=== PATIENT | male | born 1950 | race Caucasian/White ===

== ENCOUNTER 2016-09-12 16:52 | Emergency (ER) | payer MEDICARE | END 2016-09-12 18:55 | disposition left against medical advice (07) | LOC: DL.ED 16:52 | DX: Z53.21 Procedure and treatment not carried out due to patient leaving prior to being seen by health care provider (principal) ==

== ENCOUNTER 2016-09-13 14:51 | Emergency (ER) | payer MEDICARE ==
--- NOTE | 2016-09-13 14:56 | EDM.PDOC ---
ED HPI GENERAL MEDICAL PROBLEM - General Chief Complaint: General Stated Complaint: [id number] NEEDS MEDS Time Seen by Provider: 09/13/16 14:55 Source of Information: Reports: Patient, Old Records, RN, RN Notes Reviewed History Limitations: Reports: No Limitations - History of Present Illness INITIAL COMMENTS - FREE TEXT/NARRATIVE: Patient moved to [place] from the [facility], has appointment to schedule care with Dr. Mcclure on September 21 but has run out of his medications. Patient has a history of non-Hodgkin lymphoma, ulcerative colitis, hyperlipidemia, COPD , hypertension, GERD, depression, insomnia, CVA and chronic pain. Bilateral Shoulder Pain Score (Numeric/FACES): 8 - Related Data Allergies Allergy/AdvReac Type Severity Reaction Status Date / Time No Known Allergies Allergy Verified 09/12/16 17:32 Home Meds: Home Meds . [No Known Home Meds] 09/12/16 [History] Social & Family History - Family History Family Medical History: Noncontributory - Tobacco Use Smoking Status *Q: Current Every Day Smoker Tobacco Use Within Last Twelve Months: Cigarettes Years of Tobacco use: 44 - Caffeine Use Caffeine Use: Reports: Coffee, Soda - Alcohol Use Alcohol Use History: No - Recreational Drug Use Recreational Drug Use: No - Living Situation & Occupation Living situation: Reports: with Significant Other Occupation: Disabled ED ROS GENERAL - Review of Systems Review Of Systems: ROS reveals no pertinent complaints other than HPI. ED EXAM, GENERAL - Physical Exam Exam: See Below Exam Limited By: No Limitations General Appearance: Alert, No Apparent Distress, Other (chronically ill appearing) Head: Atraumatic, Normocephalic Respiratory/Chest: No Respiratory Distress Neurological: Alert, Oriented, Normal Cognition, Other (chronic deficits, status post CVA withou acute changes. ) Course - Vital Signs Last Recorded V/S: Last Vital Signs Temp 36.4 C 09/13/16 15:16 Pulse 86 09/13/16 15:16 Resp 16 09/13/16 15:16 BP 110/69 09/13/16 15:16 Pulse Ox 95 09/13/16 15:16 - Re-Assessments/Exams Free Text/Narrative Re-Assessment/Exam: 09/13/16 15:53 Patient's primary clinic [facility] was contacted and faxed a copy of the patient's current medication list and allergies to us. Departure - Departure Time of Disposition: 15:57 Disposition: Home, Self-Care 01 Condition: Good Clinical Impression: Medication refill - Discharge Information Instructions: Medicine Refill at the Emergency Department Forms: ED Department Discharge Additional Instructions: RX: Albuterol nebulizer solution 2.5mg/3mls. RX: Lipitor 80mg. RX: Hydrocortisone ointment 2.5%. RX: Gabapentin 400mg. RX: DuoNeb 0.5mg/2.5mg.3ml. RX: Hydroxyzine HCI 50mg. RX: Metoprolol XL 50mg. RX: Pyriidoxine HCI 25mg. RX: Zoloft 100mg. RX: Ranitidine 150mg. RX: Ambien 10mg. Follow up in clinic with your new doctor as scheduled on September 21.
[2016-09-13 15:17] VITALS: BP 110/69
== END 2016-09-13 16:11 | disposition home or self-care (01) ==
LOC: DL.ED 14:51
DX: Z76.0 Encounter for issue of repeat prescription (principal); F17.210 Nicotine dependence, cigarettes, uncomplicated
CPT/HCPCS: 99281; 99282